=== PATIENT | male | born 1995 | race Caucasian/White ===

== ENCOUNTER 2022-04-21 14:47 | Emergency (ER) | payer BC, SELFPAY ==
--- NOTE | 2022-04-21 14:53 | ED.URI ---
HPI - URI/Sore Throat General Chief Complaint: Upper Respiratory Infection Stated Complaint: Sinus Pain Time Seen by Provider: 04/21/22 14:53 Source: patient Mode of arrival: ambulatory Limitations: no limitations History of Present Illness HPI Narrative: Mr. Alejo is a 27-year-old male patient presenting to the clinic today with complaints of sinus pain and congestion x1 week. He reports he is having brown nasal drainage, states that it feels like his cheeks are going to explode. He does not know of any fever but is also complaining of some chills. He took a COVID test yesterday and it was negative MD elicited complaint: nasal congestion (Chills, purulent nasal drainage) and sinus pain Related Data Allergies Allergy/AdvReac Type Severity Reaction Status Date / Time No Known Allergies Allergy Verified 04/21/22 14:59 Review of Systems Review of Systems: Pertinent positives per HPI. Patient denies any fever, rash, visual changes, dizziness, cough, shortness of breath, chest pain, palpitations, nausea, vomiting, diarrhea, constipation, abdominal pain, or any urinary issues. PMFSH Comments At the time of my signature, I reviewed and agree with the nursing past medical, surgical, social, and family history. There is no relevant family history pertinent to the patient complaint. Exam Narrative: General: Well-developed, well nourished, in no apparent distress Head: Normocephalic, atraumatic Eyes: Pupils equally round and reactive to light bilaterally, EOM intact, sclera and conjunctive clear, no discharge, lids normal Ears: TMs intact and dull, ear canals clear, no drainage, grossly hearing normal. Nose: Nares patent, brown purulent nasal discharge, no inflammation, tenderness to palpation over the maxillary and ethmoid sinuses Mouth: Oral pharynx without lesions or masses, good dentition, MMM. Oropharynx red, postnasal drip Neck: Supple, trachea midline, no enlargement of anterior or posterior cervical nodes, no thyroid masses or goiter palpable. Cardio: Regular rate and rhythm, s1 and s2 normal, no murmur appreciated. Resp: Clear to auscultation bilaterally, no rhonchi, rales, wheezing or rubs Course Course Emergency Course: Portions of this record may have been created with voice recognition software. Level of Care: Express Care Visit Vital Signs Vital signs: Vital signs reviewed MDM - URI/Sore Throat MDM Narrative Medical decision making narrative: At the time of assessment patient is resting comfortably on the exam table. Patient has had sinus pressure, pain, and purulent nasal drainage x1 week. He is also complaining of some chills but unknown fever. I suspect the patient has acute bacterial rhinosinusitis and will treat with a course of Augmentin and prednisone. Supportive measures were discussed with the patient he voiced understanding of discharge instructions and agrees to the treatment plan. Differential Diagnosis Differential diagnosis: Likely upper respiratory infection, sinusitis, viral infection, bronchitis, influenza and pharyngitis Discharge Plan Discharge Clinical Impression: Acute bacterial rhinosinusitis Patient Disposition: Home, Self-Care Condition: Stable Instructions: Antibiotic Form, Rhinosinusitis (ED) Additional Instructions: Take prescription medications only as prescribed-prednisone and Augmentin as prescribed Increase fluids and stay well hydrated Tylenol/motrin for pain/fever Flonase and OTC antihistamines as directed Vicks vapor rub to open sinuses Sinus rinses for congestion Cepacol spray, cough drops, throat lozenges, warm tea with honey/lemon, gargle salt water to soothe throat BRAT diet for diarrhea Clear liquids x 24 hours then advance as tolerated for nausea/vomiting May return to the clinic if symptoms worsen Go to the ED if you develop a worsening in your condition- high fever not controlled by Tylenol or Motrin, dehydration, weakness, let
[2022-04-21 14:55] VITALS: BP 129/80; PULSE 82; RESP 18; TEMP 37.3; O2SAT 98
== END 2022-04-21 15:07 | disposition home or self-care (01) ==
PROVIDERS: Emergency Provider Nurse Practitioner Family
DX: J01.90 Acute sinusitis, unspecified (principal)
CPT/HCPCS: 99213; G0463